=== PATIENT | female | born 1975 | race Caucasian/White ===

== ENCOUNTER 2025-05-22 10:35 | Emergency (ER) | payer MEDICAID, SELFPAY ==
[2025-05-22 10:42] VITALS: BP 158/106; BP 179/120; PULSE 63; RESP 18; TEMP 36.7; O2SAT 97
--- NOTE | 2025-05-22 10:57 | EDRME_ITS ---
Rapid Medical Screening Exam RME Arrival date/time: 05/22/25 10:35 Chief Complaint: Chest Pain Time Seen by Provider: 05/22/25 10:44 Vital signs: Vital Signs Temperature 98.1 F 05/22/25 10:42 Pulse Rate 63 05/22/25 10:42 Respiratory Rate 18 05/22/25 10:42 Blood Pressure 179/120 H 05/22/25 10:42 Pulse Oximetry (%) 97 05/22/25 10:42 Oxygen Delivery Method Room Air 05/22/25 10:42 E Narrative: 49-year-old female with no contributing history complaining of palpitations and chest pain since yesterday. States she went up to [place] at higher elevation and started to have the palpitations as she was distending symptoms went away. However then they restarted. This morning the symptoms restarted again and took her blood pressure and it was 200/105. This is not normal for her as she does not have a history of hypertension. No history of pulmonary embolism no history of stroke or heart attack. No history of cholesterol non-smoker no diabetes. 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
--- NOTE | 2025-05-22 10:58 | XR_ITS ---
Examination: PA lateral chest 2 views Technique: Upright PA lateral chest 2 views Date and time: May 22, 2025, 11:12 AM Indications: Chest pain beginning 2 days ago. Findings: No significant cardiac enlargement. No lobar pneumonia or pulmonary edema. Mild osteopenia. Impression: No lobar pneumonia or pulmonary edema.
--- NOTE | 2025-05-22 10:58 | EKG_ITS ---
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
[2025-05-22 11:23] LABS: Basophils # (Auto) 0.1 Thou/mm3 (0.0-0.2); Basophils % (Auto) 1 % (0-2.5); Eosinophils # (Auto) 0.2 Thou/mm3 (0.0-0.5); Eosinophils % (Auto) 2 % (0-10); Hematocrit 40.4 % (36.0-46.0); Hemoglobin 14.2 g/dL (12.0-16.0); Immature Granulocytes Auto 0.02 Thou/mm3 (0.00-0.00); Lymphocytes # (Auto) 2.3 Thou/mm3 (1.0-4.8); Lymphocytes % (Auto) 37 % (10-50); Mean Corpuscular HGB Conc 35.1 g/dl (31.0-37.0); Mean Corpuscular Hemoglobin 30.7 pg (25.0-35.0); Mean Corpuscular Volume 87 fL (80-100); Monocytes # (Auto) 0.6 Thou/mm3 (0.0-0.8); Monocytes % (Auto) 9 % (0-12); Neutrophils # (Auto) 3.2 Thou/mm3 (1.8-7.7); Neutrophils % (Auto) 50 % (37-80); Nucleated Red Blood Cell # 0.00 Thou/mm3 (0.00-0.00); Nucleated Red Blood Cell % 0 /100 WBC (0); Platelet Count 371 Thou/mm3 (140-440); RDW Standard Deviation 38.7 fL (36.4-46.3); Red Blood Count 4.63 Miln/mm3 (4.00-5.20); White Blood Count 6.3 Thou/mm3 (3.6-11.0)
[2025-05-22 11:36] LABS: B-Type Natriuretic Peptide 23 pg/mL (0-100)
[2025-05-22 11:40] LABS: Alanine Aminotransferase 17 U/L (10-49); Albumin, Serum 4.4 gm/dL (3.5-5.0); Albumin/Globulin Ratio 1.4 (1.2-2.2); Alkaline Phosphatase 71 U/L (46-116); Anion Gap 7 (7-16); Aspartate Amino Transferase 20 U/L (0-34); BUN/Creatinine Ratio 11 Ratio (12-20); Bilirubin,Total 0.5 mg/dL (0.3-1.2); Blood Urea Nitrogen 9 mg/dL (9-23); Calcium 9.7 mg/dL (8.3-10.6); Calcium (Corrected) 9.7 mg/dL (8.5-10.1); Carbon Dioxide 26.2 mMol/L (20.0-31.0); Chloride 107 mMol/L (98-107); Creatinine (Component) 0.8 mg/dL (0.6-1.3); Estimated Creatinine Clearance 97.4 mL/min (>60); Globulin 3.2 gm/dL (2.3-3.5); Glucose 86 mg/dL (74-106); Magnesium 2.0 mg/dL (1.6-2.6); Osmolality,Calculated 277 (275-295); Potassium 4.4 mMol/L (3.4-5.1); Sodium 140 mMol/L (136-145); Thyroid Stimulating Hormone 1.58 uIU/mL (0.55-4.78); Total Protein 7.6 gm/dL (5.7-8.2); Troponin I < 0.002 ng/mL (0.0-0.045); eGFR > 60 See Note
[2025-05-22 11:44] LABS: D-Dimer < 250 ng/mL (<600)
[2025-05-22 11:54] LABS: Amphetamine/Methamp Scrn,U Negative (Negative); Barbiturate Screen,Urine Negative (Negative); Benzodiazepines Screen,Urine Negative (Negative); Benzoylecgonine Screen, Ur Negative (Negative); Fentanyl Screen,Urine Negative (Negative); Opiate Screen,Urine Negative (Negative); THC Screen,Urine Negative (Negative)
--- NOTE | 2025-05-22 12:38 | EDNOTE_ITS ---
ED General RME/HPI General Chief complaint: Chest Pain Stated complaint: CHEST PAIN, DIZZY, BP 199/98; STARTED YESTERDAY Time Seen by Provider: 05/22/25 10:44 Arrival date/time: 05/22/25 10:35 CC: Chest pain HPI 2 episodes of stabbing chest pain to the left mid axillary chest wall sharp in nature 7-8 on a 10 scale lasting 2 to 3 minutes the first one while at 8000 foot elevation without any strenuous exercise the second 1 this morning at 800 foot elevation same duration same location same intensity with spontaneous resolution as in the previous 1. No prior history of similar events denies shortness of breath cough or difficulty breathing. None of the previous mentioned symptoms without chest pain. Patient has no PCP takes no medications he is not in any acute distress with no chest pain at this time. RME / HPI RME / HPI narrative: 49-year-old female with no contributing history complaining of palpitations and chest pain since yesterday. States she went up to [place] at higher elevation and started to have the palpitations as she was distending symptoms went away. However then they restarted. This morning the symptoms restarted again and took her blood pressure and it was 200/105. This is not normal for her as she does not have a history of hypertension. No history of pulmonary embolism no history of stroke or heart attack. No history of cholesterol non-smoker no diabetes. 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 Related Data Allergies Allergy/AdvReac Type Severity Reaction Status Date / Time No Known Allergies Allergy Verified 05/22/25 10:38 Review of Systems Review of Systems Narrative Review of Systems: GEN: No fever, no chills, no weight loss EYES: No discharge, no visual changes, no pain HEENT: No ear pain, no congestion, no sore throat PULM: No shortness of breath, no cough, no congestion CV: + chest pain, no dyspnea on exertion, no palpitations GI: No nausea, no vomiting, no diarrhea, no pain, no constipation : No frequency, no urgency, no dysuria MUSC/SKEL: No joint pain, no back pain SKIN: No rash PSYCH: No hallucinations, no depression HEME/LYMPH: No easy bleeding or bruising tendencies NEURO: No weakness, no headache ED Exam Narrative Physical exam: [General: Not in any acute distress Head normocephalic HEENT: Within acceptable limits Neck is supple nontender Chest equal chest rise nontender to palpation Respiratory: Clear to auscultation no wheezes crackles or rubs CV: Rate rhythm is regular no murmurs rubs or clicks Abdomen is soft nontender no masses positive bowel sounds all 4 quadrants Back: No CVA tenderness no spinous process tenderness from cervical spine thoracic and lumbar spine Skin: Intact no petechiae rash induration ulceration or crepitus Extremities: Moving all extremity against resistance cap refill less than 2 seconds neurosensory intact Neuro: Awake alert oriented x3 Glascow coma 15 no focal deficits] Course Course Course Narrative: Reexamination of this patient at 1429, the patient has had no recurrence of her chest pain throughout the visit to the emergency room. Quality Measures none Orders Category Date Time Status EKG (ED ONLY) *Do not use* NOW Care 05/22/25 10:58 Completed EKG (ED Only) Stat Exams 05/22/25 10:58 Draft XR chest 2V Stat Exams 05/22/25 10:58 Completed BNP [B-Type Natriuretic Peptide] Stat Lab 05/22/25 11:10 Completed CBC Stat Lab 05/22/25 11:10 Completed CMP [Comprehensive Metabolic Panel] Stat Lab 05/22/25 11:10 Completed D-Dimer Stat Lab 05/22/25 11:10 Completed Drug Screen,Urine Stat Lab 05/22/25 11:15 Completed Magnesium [Magnesium] Stat Lab 05/22/25 11:10 Completed TSH [Thyroid Stimulating Hormone] Stat Lab 05/22/25 11:10 Completed Troponin I Stat Lab 05/22/25 11:10 Completed Troponin I Stat Lab 05/22/25 14:10 Completed Vital Signs Vital signs: Vital Signs Temperature 98.1 F 05/22/25 10:42 Pulse Rate 63 05/22/25 10:42 Respiratory Rate 18 05/22/25 10:42 Blood Pressure 179/120 H 05/22/25 10:42 Pulse Oximetry (%) 97 05/22/25 10:42 Oxygen Delivery Method Room Air 05/22/25 10:42 Discharge Plan Plan Patient Disposition: HOME (Self Care) Patient condition on transfer: Stable Prescriptions/Referrals Referrals: Bradley Bell MD [Physician] - In 1 week No Primary/Family,Physician [Primary Care Provider] - In 1 week Problem List Clinical Impression: Chest pain Patient/Caregiver Discharge Instructions Education Materials: ED Chest Pain, Uncertain Cause Additional Instructions: Follow-up with your primary care provider if there is a worsening of symptoms return the emergency room medially for further evaluation. Print Language: Ecuadorean Stand Alone Forms: Alanna Award Info., Work/School Release, Patient Portal Info Letter SONI/CESILIA Supervising Physician SONI/CESILIA Supervising Physician: Randall Boswell ENP [facility] Clinical Information Provided by patient Medical Records Reviewed [facility] Meds/Rx Considered, not Ordered None Labs/Rad/Tests considered, not Ordered None Chronic Illness/Social Conditions which may negatively complicate care or outcome(s)-explain: None or not applicable EKG EKG Interpretation narrative: EKG performed at 1058 shows a ventricular rate of 64 [place] interval 173 QRS of 179 QTc of 393 there is normal sinus rhythm. Lab Interpretation Lab(s) interpretation(s): CBC shows no acute leukocytosis anemia thrombocytopenia D-dimer is less than 250 CMP shows no significant electrolyte imbalances renal impairment transaminitis or T. bili elevation Troponin and BNP are within acceptable limits UTOX is negative chest x-ray is negative for any acute finding requires emergent or immediate intervention as read by radiologist.
[2025-05-22 12:43] VITALS: BP 144/84; PULSE 57; RESP 15; TEMP 36.6; O2SAT 99
[2025-05-22 14:48] LABS: Troponin I < 0.002 ng/mL (0.0-0.045)
[2025-05-22 15:08] VITALS: BP 144/84; PULSE 88; RESP 16; O2SAT 98
== END 2025-05-22 15:14 | disposition home or self-care (01) ==
PROVIDERS: Physician Assistant; Registered Nurse General Practice; Emergency Provider Family Medicine
DX: R07.89 Other chest pain (principal); R94.31 Abnormal electrocardiogram [ECG] [EKG]
CPT/HCPCS: 36415; 71046; 80053; 80307; 83735; 83880; 84443; 84484; 85025; 85379; 93005; 99284